=== PATIENT | female | born 1935 | race Caucasian/White ===

== ENCOUNTER 2018-04-01 17:53 | Emergency (ER) | payer MEDICARE, OTHER ==
[~2018-04-01] VITALS: Ht 160 cm; Wt 68.0 kg
[~2018-04-01 17:53] MED LIST: ASPI-495 PO; CHOLESTEROL PILL; UNKNOWN HTN MED; [UNRECOGNIZED DRUG - REMARK]
--- NOTE | 2018-04-01 18:00 | NUR ---
COUGH, CONGESTION, SOB, FLU SYMPTOMS x 1 WEEK, NAD NOTED, VSS, RESP EVEN AND UNLABORED, PT WAS PUT ON MONITOR, WAITING FOR MD NAVARRO.
[2018-04-01] MEDS ORDERED: predniSONE 20 MG TABLET ONE (18:20)
[2018-04-01] MEDS ORDERED: ALBUTEROL FS 2.5 MG/3 ML VIAL.NEB ONE (18:27)
[2018-04-01] MEDS ORDERED: predniSONE 20 MG TABLET PO ONE (18:30)
[2018-04-01] MEDS ORDERED: ALBUTEROL FS 2.5 MG/3 ML VIAL.NEB NEB ONE (18:30)
[2018-04-01 18:31] LABS: BASOPHILS % (AUTO) 0.5 % (0.0-2.0); EOSINOPHILS % (AUTO) 5.1 % (0.0-6.0); HEMATOCRIT 37 % (33-45); HEMOGLOBIN 12.2 g/dL (11.5-14.8); LYMPHOCYTES # (AUTO) 1.2 /CMM (0.8-4.8); LYMPHOCYTES % (AUTO) 30.1 % (20.0-44.0); MEAN CORPUSCULAR HGB CONC 33 g/dl (31.0-36.0); MEAN CORPUSCULAR VOLUME 83 fL (82-100); MONOCYTES # (AUTO) 0.3 /CMM (0.1-1.30); MONOCYTES % (AUTO) 8.2 % (2.0-12.0); NEUTROPHILS # (AUTO) 2.3 /CMM (1.8-8.9); NEUTROPHILS % (AUTO) 56.1 % (43.0-81.0); PLATELET COUNT (AUTO) 211 /CMM (150-450); RDW COEFFICIENT OF VARIATION 14.1 (11.5-15.0); RED BLOOD CELL COUNT(AUTO) 4.44 MIL/uL (4.0-5.2)
--- NOTE | 2018-04-01 18:31 | NUR ---
RT AT BS
[2018-04-01] MEDS ORDERED: ATOR10TA PO (18:34)
[2018-04-01] MEDS ORDERED: LEVE500T20 PO (18:34)
[2018-04-01] MEDS ORDERED: CARV6.252 PO (18:34)
[2018-04-01] MEDS ORDERED: DABI150C PO (18:34)
[2018-04-01 18:45] LABS: CALCIUM, SERUM 9.2 mg/dL (8.5-10.1); CARBON DIOXIDE 29 mmol/L (21-32); CHLORIDE 106 mmol/L (98-107); CREATININE 0.7 mg/dL (0.6-1.3); GLUCOSE 111 mg/dL (74-106); POTASSIUM 4.1 mmol/L (3.5-5.1); SODIUM SERUM 139 mmol/L (136-145); UREA NITROGEN, BLOOD 20 mg/dL (7-18)
[2018-04-01] MEDS ORDERED: ASPI-495 PO (18:52)
[2018-04-01] MEDS ORDERED: CLOP75TA15 PO (18:52)
[2018-04-01 19:00] LABS: B-TYPE NATRIURETIC PEPTIDE 584 PG/ML (0-125)
--- NOTE | 2018-04-01 19:20 | NUR ---
Patient does not wish to proceed with medical care recommended by Dr. VALLE. Patient given information related to possible complications, up to and including , which could occur as a result of leaving the hospital at this time. Patient verbalizes understanding of risks involved due to leaving against medical advice. Patient has signed AMA form.
[2018-04-01] MEDS ORDERED: LEVOFLOXACIN (750 MG) 750 MG TABLET PO SCH (19:30)
--- NOTE | 2018-04-01 19:34 | NUR ---
Patient discharged to home in stable condition. Written and verbal after care instructions given. Patient verbalizes understanding of instruction AND RX. PT'S DAUGHTER IS DRIVING PT HOME. PT'S VSS. PT STILL SOUNDS TIGHT. RESP 22. O2 SAT IS 97% ON RA. PT AMBULATED OUT WITH A STEADY GAIT. PT IS AWARE THAT SHE CAN RETURN FOR ADMISSION AT ANY TIME. AMA FORM IS IN CHART AND DR. VALLE IS AWARE.
[2018-04-01 19:37] VITALS: BP 148/89
== END 2018-04-01 19:38 | disposition left against medical advice (07) ==
LOC: ER 17:55
DX: I11.0 Hypertensive heart disease with heart failure (principal); I50.9 Heart failure, unspecified; J45.909 Unspecified asthma, uncomplicated; I25.2 Old myocardial infarction; Z88.6 Allergy status to analgesic agent; Z85.820 Personal history of malignant melanoma of skin; Z86.73 Personal history of transient ischemic attack (TIA), and cerebral infarction without residual deficits
CPT/HCPCS: 36415; 71045-TC; 80048-TC; 83880; 85025-TC; A4606; Z7610

== ENCOUNTER 2018-06-04 19:45 | Emergency (ER) | payer MEDICARE, OTHER ==
[~2018-06-04] VITALS: Ht 149.9 cm; Wt 60.3 kg
[~2018-06-04 19:45] MED LIST changes: +ATOR10TA PO; +CARV6.252 PO; -CHOLESTEROL PILL; +CLOP75TA15 PO; +DABI150C PO; +LEVE500T20 PO; -UNKNOWN HTN MED; -[UNRECOGNIZED DRUG - REMARK]
[2018-06-04 19:52] VITALS: BP 153/104
[2018-06-04] MEDS ORDERED: ACETAMINOPHEN ES 500 MG TABLET ONE (20:22)
[2018-06-04] MEDS ORDERED: ACETAMINOPHEN ES 500 MG TABLET PO ONE (20:30)
== END 2018-06-04 21:45 | disposition home or self-care (01) ==
LOC: ER 19:49
DX: S40.011A Contusion of right shoulder, initial encounter (principal); M25.511 Pain in right shoulder; I10 Essential (primary) hypertension; I25.2 Old myocardial infarction; Z79.82 Long term (current) use of aspirin; W01.0XXA Fall on same level from slipping, tripping and stumbling without subsequent striking against object, initial encounter; Y93.89 Activity, other specified; Y92.000 Kitchen of unspecified non-institutional (private) residence as the place of occurrence of the external cause; Y99.8 Other external cause status
CPT/HCPCS: 73030; 73060; 99284; A4606; Z7610

== ENCOUNTER 2019-03-07 13:06 | Inpatient (IN) | payer MEDICARE, OTHER ==
[~2019-03-07] VITALS: Ht 152.4 cm; Wt 67.8 kg
[2019-03-07] MEDS ORDERED: LOSA50TA39 PO (13:30)
[2019-03-07] MEDS ORDERED: MORPHINE SULFATE INJ 2 MG/ML DISP.SYRIN IV ONE (13:30)
[2019-03-07] MEDS ORDERED: ONDANSETRON HCL/PF 4 MG/2 ML VIAL IVP ONE (13:30)
--- NOTE | 2019-03-07 13:35 | NUR ---
18G IV STARTED IN RAC. BLOOD WAS DRAWN AND DIE MAKER TRIM IS AT THE BEDSIDE FOR P/U.
--- NOTE | 2019-03-07 13:37 | NUR ---
EKG IN PROGRESS AT THE BEDSIDE.
[2019-03-07] MEDS ORDERED: ONDANSETRON HCL/PF 4 MG/2 ML VIAL ONE (13:38)
[2019-03-07 13:39] LABS: BASOPHILS % (AUTO) 0.7 % (0.0-2.0); EOSINOPHILS % (AUTO) 3.1 % (0.0-6.0); HEMATOCRIT 35 % (33-45); HEMOGLOBIN 11.7 g/dL (11.5-14.8); LYMPHOCYTES # (AUTO) 1.1 /CMM (0.8-4.8); LYMPHOCYTES % (AUTO) 20.3 % (20.0-44.0); MEAN CORPUSCULAR HGB CONC 33 g/dl (31.0-36.0); MEAN CORPUSCULAR VOLUME 85 fL (82-100); MONOCYTES # (AUTO) 0.5 /CMM (0.1-1.30); MONOCYTES % (AUTO) 9.7 % (2.0-12.0); NEUTROPHILS # (AUTO) 3.4 /CMM (1.8-8.9); NEUTROPHILS % (AUTO) 66.2 % (43.0-81.0); PLATELET COUNT (AUTO) 198 /CMM (150-450); RED BLOOD CELL COUNT(AUTO) 4.13 MIL/uL (4.0-5.2); WHITE BLOOD COUNT (AUTO) 5.2 K/uL (4.3-11.0)
[2019-03-07] MEDS ORDERED: MORPHINE SULFATE INJ 2 MG/ML DISP.SYRIN ONE (13:39)
--- NOTE | 2019-03-07 13:45 | NUR ---
PT REC'D MEDICATION ORDERED. PT WAS 92% ON RA. PT WAS PLACED ON 2L O2 VIA NC AND IS SATURATING @ 97%.
--- NOTE | 2019-03-07 13:46 | NUR ---
[place].
[2019-03-07 13:47] LABS: CALCIUM, SERUM 8.9 mg/dL (8.5-10.1); CARBON DIOXIDE 33 mmol/L (21-32); CHLORIDE 109 mmol/L (98-107); CREATININE 0.6 mg/dL (0.6-1.3); GLUCOSE 108 mg/dL (74-106); POTASSIUM 4.1 mmol/L (3.5-5.1); SODIUM SERUM 148 mmol/L (136-145); UREA NITROGEN, BLOOD 18 mg/dL (7-18)
[2019-03-07 13:53] LABS: ALANINE AMINOTRANSFERASE 25 U/L (12-78); ALBUMIN 3.3 g/dL (3.4-5.0); ALKALINE PHOSPHATASE 94 U/L (46-116); ASPARTATE AMINOTRANSFERASE 27 U/L (15-37); BILIRUBIN,DIRECT 0.1 mg/dL (0.0-0.2); BILIRUBIN,TOTAL 0.6 mg/dL (0.2-1.0); LIPASE 102 U/L (73-393); TOTAL PROTEIN, SERUM 6.5 g/dL (6.4-8.2)
--- NOTE | 2019-03-07 14:00 | NUR ---
Pt returned from CT.
--- NOTE | 2019-03-07 14:46 | NUR ---
HARITHA PAGED, VLAD OLIVO TRAINER FELT CUTTING MACHINE OPERATOR
--- NOTE | 2019-03-07 14:57 | NUR ---
CALLED NURSING SUP. FOR TELE BED
--- NOTE | 2019-03-07 15:06 | NUR ---
Note heron in ED - 03/07/19 at 1510 by KLAUS PT APPEARS TO BE RESTING COMFORTABLY WITH NO C/O PAIN AT THIS TIME. PT IS ON THE MONITOR AND CONTINUOUS PULSE OX. SR NOTED.
--- NOTE | 2019-03-07 15:06 | NUR ---
PT APPEARS TO BE RESTING COMFORTABLY WITH NO C/O PAIN AT THIS TIME. PT IS ON THE MONITOR AND CONTINUOUS PULSE OX. AFIB NOTED.
[2019-03-07] MEDS ORDERED: ASPI-605 PO (15:07)
--- NOTE | 2019-03-07 15:07 | NUR ---
PT'S DAUGHTER IS AT THE BEDSIDE. SHE WENT HOME TO GET THE PT'S HOME MEDICATIONS. MEDICATIONS WERE GIVEN TO GENARO MONDRAGON REC NURSE.
--- NOTE | 2019-03-07 15:16 | NUR ---
TELE [id number]-
--- NOTE | 2019-03-07 15:25 | NUR ---
CALLING REPORT TO TELE NURSE.
--- NOTE | 2019-03-07 15:29 | NUR ---
REPORT GIVEN TO CHRIS GARCIA
--- NOTE | 2019-03-07 15:29 | NUR ---
room 322-1 nurse gloria receiving RN
[2019-03-07] MEDS ORDERED: ACETAMINOPHEN 325 MG TABLET PO PRN (15:30)
[2019-03-07] MEDS ORDERED: MAGNESIUM HYDROXIDE 30 ML UDC PO PRN (15:30)
[2019-03-07] MEDS ORDERED: ONDANSETRON HCL/PF 4 MG/2 ML VIAL IVP PRN (15:30)
[2019-03-07] MEDS ORDERED: Z GUARD REMEDY 2 OZ OINT TP PRN (15:30)
[2019-03-07] MEDS ORDERED: MAG HYDROX/AL HYDROX/SIMETH 30 ML UDC PO PRN (15:30)
[2019-03-07] MEDS ORDERED: MORPHINE SULFATE INJ 2 MG/ML DISP.SYRIN IV PRN (15:30)
--- NOTE | 2019-03-07 15:32 | NUR ---
SATHYA COLUNGA, DAUGHTER,
[2019-03-07 16:00] VITALS: BP 111/63
--- NOTE | 2019-03-07 16:03 | NUR ---
TELE/RN NOTE RECEIVED THE PATIENT ON A GURNEY. ASSISTED TO BED. THE PATIENT ALERT AND ORIENTED X2. RECEIVING OXYGEN AT 2L/MIN VIA NASAL CANNULA AND DENIES SOB. RESPIRATION REGULAR AND UNLABORED. DENIES PAIN. RAC G 18 PATENT AND SALINE LOCKED. GAVE ORIENTATION TO THE ROOM/UNIT. BED LOW AND LOCKED. SIDE RAILS UP X3. CALL LIGHT WITHIN REACH. WILL CONTINUE TO MONITOR.
--- NOTE | 2019-03-07 16:30 | NUR ---
MS/RN NOTE EXTERNAL TELE BOX READING AFIB 46.
[2019-03-07] MEDS: CARVEDILOL 6.25 MG TABLET PO SCH (17:00)
--- NOTE | 2019-03-07 18:11 | NUR ---
MS/RN CLOSING NOTE THE PATIENT ALERT AND ORIENTED X2. RECEIVING OXYGEN 2L/MIN VIA NASAL CANNULA DN SATURATION IS AT 97%. DENIES SOB. RESPIRATION REGULAR AND UNLABORED. DENIES PAIN. EXTERNAL TELE BOX READING IS AFIB 43. ABDOMEN SOFT AND NON-DISTENDED. RAC G 18 PATENT AND SALINE LOCKED. BED LOW AND LOCKED. SIDE RAILS UP X3. CALL LIGHT WITHIN REACH. WILL ENDORSE TO NIGHTS SHIFT.
--- NOTE | 2019-03-07 19:44 | NUR ---
DISINTEGRATOR FEEDER OPENING NOTES: RECEIVED PT ON 2LPM VIA NC AND IS TOLERATING WELL. PT ASKING TO EAT OR DRINK BUT EXPLAINED TO FAMILY MEMBERS THE SITUATION. FOR NOW, PT HAS TO REMAIN NPO. NO N/V NOTED AT THIS TIME. ENDORSED THAT X RAY IS TO PICK HER UP FOR SMALL BOWEL FOLLOW THROUGH. AWAITING AT THIS TIME. ASKED FAMILY MEMBERS AT BEDSIDE TO BRING PRADAXA BUT THEY ARE NOT THE ONES LIVING WITH HER SO THEY ARE UNABLE TO PROVIDE PRADAXA BUT WILL INFORM ANOTHER FAMILY MEMBER. IV REMAINS INTACT. PT ON TELE BOX AND READING SHOWS A FIB 48. BED KEPT IN LOW, LOCKED POSITION, AND SIDE RAILS X 2UP. WILL CONTINUE TO MONITOR PT. Addendum: 03/08/19 at 0236 by BENJAMIN BOATENG RN WAS ENDORSED
[2019-03-07 20:00] VITALS: BP 105/45
--- NOTE | 2019-03-07 20:31 | NUR ---
PREPARATION CENTER COORDINATOR NOTES: DAUGHTER PURAN AT BEDSIDE AND BROUGHT PRADAXA 150MG IN BOTTLE WITH 7 CAPSULES NOTED. WILL SEND TO PHARMACY TOMORROW.
--- NOTE | 2019-03-07 20:38 | NUR ---
EXTERNAL AUDITOR NOTES: MARLENY MCDONNELL, CAME BY AND DROPPED OFF PRADAXA. 7 CAPSULES NOTED AND SHE SIGNED FOR IT. HER PHONE NUMBER IN CASE OF EMERGENCY [phone]
[2019-03-07] MEDS: ATORVASTATIN 10 MG TABLET PO SCH (21:01)
[2019-03-08] VITALS: BP 118/65
--- NOTE | 2019-03-08 05:28 | NUR ---
HECTOR PEREZ NOTES: PT UP AND SAID HER FEET ARE TIRED AND WOULD LIKE TO WALK AROUND THE UNIT. Addendum: 03/08/19 at 48 by BENJAMIN BOATENG RN DISCARD THIS NOTE ; WRONG PT
--- NOTE | 2019-03-08 06:24 | NUR ---
SOLVENT PROCESS EXTRACTOR OPERATOR CLOSING NOTES: ALL NEEDS WERE ATTENDED AND ANTICIPATED FOR. PT KEPT CLEAN, DRY, AND COMFORTABLE. PT ON 2LPM VIA NC AND IS TOLERATING WELL. NO SOB NOTED. NO S/S OF DISTRESS. NO N/V DURING SHIFT. PT ON TELE MONITOR AND READING SHOWS A FIB 58-60S. PT HAS BEEN NPO ORDERED. IV REMAINS INTACT .CURRENTLY H/L. BED KEPT IN LOW, LOCKED POSITION, AND SIDE RAILS X 2 UP. BED ALARM ACTIVATED. WILL ENDORSE TO AM NURSE FOR SHONA.
--- NOTE | 2019-03-08 07:25 | NUR ---
VOLCANOLOGIST NOTES: BROUGHT DOWN PRADAXA TO PHARMACY.
[2019-03-08 08:00] VITALS: BP 120/67
--- NOTE | 2019-03-08 08:00 | NUR ---
Tele/RN - Assessment Patient awake, A/O x 4, on tele A.Fib with PVCs, no complaints overnight, denies pain at this time, no c/o nausea/vomiting, no apparent distress noted, afebrile, stable on room air. Saline lock on the RAC is patent, intact, with no signs of infiltration. Lab results pending. Skin is intact. Patient is ambulatory with steady gait. Patient is currently NPO for SBFT today. Will continue with current medical management.
[2019-03-08] MEDS: CARVEDILOL 6.25 MG TABLET PO SCH ×2 (08:16→16:31)
[2019-03-08] MEDS: LOSARTAN POTASSIUM 50 MG TABLET PO SCH (08:16)
[2019-03-08] MEDS: LEVETIRACETAM (250 MG) 250 MG TABLET PO SCH (08:17)
[2019-03-08 08:30] LABS: BASOPHILS % (AUTO) 0.6 % (0.0-2.0); EOSINOPHILS % (AUTO) 2.5 % (0.0-6.0); HEMATOCRIT 37 % (33-45); HEMOGLOBIN 11.9 g/dL (11.5-14.8); LYMPHOCYTES % (AUTO) 20.5 % (20.0-44.0); MEAN CORPUSCULAR HGB CONC 32 g/dl (31.0-36.0); MEAN CORPUSCULAR VOLUME 86 fL (82-100); MONOCYTES # (AUTO) 0.4 /CMM (0.1-1.30); NEUTROPHILS # (AUTO) 3.4 /CMM (1.8-8.9); NEUTROPHILS % (AUTO) 68.4 % (43.0-81.0); PLATELET COUNT (AUTO) 197 /CMM (150-450)
[2019-03-08] MEDS: FUROSEMIDE 20 MG/2 ML VIAL IV SCH (08:33)
[2019-03-08] MEDS: FAMOTIDINE/PF INJ 20 MG/2 ML VIAL IV SCH (08:33)
[2019-03-08 08:38] LABS: CALCIUM, SERUM 8.5 mg/dL (8.5-10.1); CARBON DIOXIDE 33 mmol/L (21-32); CHLORIDE 106 mmol/L (98-107); CREATININE 0.7 mg/dL (0.6-1.3); GLUCOSE 79 mg/dL (74-106); MAGNESIUM 1.8 mg/dL (1.8-2.4); PHOSPHORUS 4.3 mg/dL (2.5-4.9); SODIUM SERUM 144 mmol/L (136-145); UREA NITROGEN, BLOOD 19 mg/dL (7-18)
[2019-03-08 08:54] LABS: CHOLESTEROL 130 mg/dL (<200); HDL CHOLESTEROL 42 mg/dL (40-60); LDL 76 mg/dL (0-99); THYROID STIMULATING HORMONE 1.151 uIU/mL (0.358-3.74); TRIGLYCERIDES 63 mg/dL (30-150)
[2019-03-08] MEDS ORDERED: DIATR MEGLU/DIATRIZOATE SODIUM 120 ML BOTTLE (GASTROGRAPHIN) ONE (09:15)
--- NOTE | 2019-03-08 10:00 | NUR ---
Tele/RN - Notes Patient taken to radiology for SBFT.
[2019-03-08 12:00] VITALS: BP 150/75
--- NOTE | 2019-03-08 12:15 | NUR ---
Tele/RN - Notes Patient came back from SBFT in no acute distress, remain NPO for now, daughter Kaya at bedside updated on plan of care.
--- NOTE | 2019-03-08 12:20 | NUR ---
Tele/RN - Notes Patient still A.Fib with PVCs HR 70s-80s on tele monitor.
[2019-03-08 16:00] VITALS: BP 156/81
--- NOTE | 2019-03-08 16:35 | NUR ---
Tele/RN - Notes Patient tolerated full liquid diet well, no c/o nausea/vomiting, denies abdominal pain, will advance to soft.
--- NOTE | 2019-03-08 18:02 | NUR ---
Tele/RN - End of shift summary Patient states feeling better, denies abdominal pain, no c/o n/v, tolerated soft diet, on low dose Lasix, diuresing well. All needs attended. Fall precautions maintained. Will continue with current medical management.
--- NOTE | 2019-03-08 19:28 | NUR ---
CHIEF ENGINEER RESEARCH OPENING NOTES: RECEIVED PT ON 2LPM VIA NC AND IS TOLERATING WELL. IV REMAINS INTACT AND IS PATENT AND INTACT .CURRENTLY H/L. FAMILY MEMBER AT BEDSIDE. PT CONCERNED ABOUT GOING HOME. EXPLAINED TO HER THAT SHE IS STILL UNDER OBSERVATION AND NO ORDERS FOR DISCHARGE ARE PUT IN YET. BED KEPT IN LOW, LOCKED POSITION, AND SIDE RAILS X 2UP. PT ON TELE MONITOR AND READING SHOWS A FIB 44. WILL CONTINUE TO MONITOR PT.
[2019-03-08 20:00] VITALS: BP 114/57
[2019-03-08] MEDS: ATORVASTATIN 10 MG TABLET PO SCH (21:14)
[2019-03-09] VITALS: BP 132/56
[2019-03-09 04:00] VITALS: BP 145/59
--- NOTE | 2019-03-09 06:35 | NUR ---
MARKETING TRAFFIC COORDINATOR CLOSING NOTES: ALL NEEDS WERE ATTENDED AND ANTICIPATED FOR. PT REMAINS ON 2LPM VIA NC . PT ASLEEP AT THIS TIME AND RESTING COMFORTABLY. NO SOB NOTED. NO S/S OF DISTRESS. NO N/V. IV REMAINS INTACT AND CURRENTLY H/L. BED KEPT IN LOW, LOCKED POSITION, AND SIDE RAILS X 2UP. PT ON TELE MONITOR AND READING SHOWS A FIB 61 WITH OCCASIONAL PVCS. PT ANTICIPATING TO GO HOME. WILL ENDORSE TO AM NURSE FOR SHONA.
[2019-03-09 07:03] LABS: CALCIUM, SERUM 8.2 mg/dL (8.5-10.1); CARBON DIOXIDE 34 mmol/L (21-32); CHLORIDE 103 mmol/L (98-107); CREATININE 0.7 mg/dL (0.6-1.3); GLUCOSE 88 mg/dL (74-106); SODIUM SERUM 142 mmol/L (136-145); UREA NITROGEN, BLOOD 20 mg/dL (7-18)
[2019-03-09 07:04] LABS: BASOPHILS % (AUTO) 0.8 % (0.0-2.0); EOSINOPHILS % (AUTO) 2.9 % (0.0-6.0); HEMATOCRIT 34 % (33-45); HEMOGLOBIN 11.1 g/dL (11.5-14.8); MEAN CORPUSCULAR HGB CONC 33 g/dl (31.0-36.0); MEAN CORPUSCULAR VOLUME 85 fL (82-100); MONOCYTES # (AUTO) 0.5 /CMM (0.1-1.30); MONOCYTES % (AUTO) 10.8 % (2.0-12.0); NEUTROPHILS # (AUTO) 3.1 /CMM (1.8-8.9); NEUTROPHILS % (AUTO) 64.5 % (43.0-81.0); PLATELET COUNT (AUTO) 177 /CMM (150-450); RED BLOOD CELL COUNT(AUTO) 4.02 MIL/uL (4.0-5.2); WHITE BLOOD COUNT (AUTO) 4.8 K/uL (4.3-11.0)
--- NOTE | 2019-03-09 07:31 | NUR ---
Tele/RN - Assessment Patient is awake, A/O x 4, on tele A.Fib with occasional PVCs, no complaints overnight, denies abdominal pain, no c/o nausea/vomiting, afebrile, currently on oxygen at 2 lpm via NC. Saline lock on the RAC is patent, intact, with no signs of infiltration. Labs reviewed, no critical results. Skin is intact. Patient is ambulatory with steady gait. Anticipate discharge home today if remain stable.
[2019-03-09 08:00] VITALS: BP 140/77
[2019-03-09] MEDS: LEVETIRACETAM (250 MG) 250 MG TABLET PO SCH (08:25)
[2019-03-09] MEDS: CARVEDILOL 6.25 MG TABLET PO SCH (08:26)
[2019-03-09] MEDS: FAMOTIDINE/PF INJ 20 MG/2 ML VIAL IV SCH (08:26)
[2019-03-09] MEDS: LOSARTAN POTASSIUM 50 MG TABLET PO SCH (08:26)
[2019-03-09] MEDS: FUROSEMIDE 20 MG/2 ML VIAL IV SCH (08:26)
[2019-03-09] MEDS ORDERED: DABIGATRAN ETEXILATE MESYLATE 150 MG CAPSULE PO SCH (09:00)
--- NOTE | 2019-03-09 09:15 | NUR ---
MS/RN - Notes Cardiac monitoring discontinued.
[2019-03-09] MEDS ORDERED: FUROSEMIDE 20 MG/2 ML VIAL IV ONE (10:00)
--- NOTE | 2019-03-09 10:45 | NUR ---
MS/RN - Notes Patient's oxygen saturation at rest on room air was 87%, with activity was 86%, on oxygen at 2lpm was 92-94%. Hospitalist BENITA Dan and CM made aware, will arrange for DME:oxygen prior to discharge.
[2019-03-09] MEDS ORDERED: AMOX/CLAVULANATE 875 MG TABLET ONE (10:53)
--- NOTE | 2019-03-09 12:00 | NUR ---
RECEIVED REPORT FROM YUERN -PT ALERT AND ORIENTED X3.VERBALLY RESPONSIVE IN [facility].SITTING IN THE EDGE OF THE BED WITH O2 AT 2L/MIN VIA NC.DENIES SOB OR DISCOMFORT.CALL LIGHT PLACED WITHIN REACH.
--- NOTE | 2019-03-09 15:17 | NUR ---
DISCHARGE INSTRUCTIONS,MED RECONCILIATION,MED AND HEALTH TEACHING GIVEN TO THE PT.BELONGINGS CHECKED.IV H/L REMOVED TO RT AC WITH NO BLEEDING OR SWELLING NOTED ON THE SITE. AWAITING FOR OXYGEN CONCENTRATOR TO BE DELIVERED IN PT'S HOME.PT COMFORTABLY SLEEPING IN BED WITH NO S/S OR DISTRESS.CALL LIGHT PLACED WITHIN REACH.
[2019-03-09 16:00] VITALS: BP 121/67
--- NOTE | 2019-03-09 17:34 | NUR ---
DISCHARGED HOME WITH STABLE V/S.PICKED UP BY HER DAUGHTER,,POURAN WITH O2 TANK AT 2L/MIN VIA NC.
== END 2019-03-09 17:35 | disposition home or self-care (01) | DRG 388 ==
LOC: ER 13:13 → TELE 15:21 → MED 03-09 08:57
PROVIDERS: ADMIT Registered Nurse; ATTEND Nurse Practitioner Acute Care
DX: K56.600 Partial intestinal obstruction, unspecified as to cause (principal); I50.33 Acute on chronic diastolic (congestive) heart failure; I11.0 Hypertensive heart disease with heart failure; E78.5 Hyperlipidemia, unspecified; I25.10 Atherosclerotic heart disease of native coronary artery without angina pectoris; I48.91 Unspecified atrial fibrillation; I25.2 Old myocardial infarction; Z95.5 Presence of coronary angioplasty implant and graft; K59.00 Constipation, unspecified; E66.9 Obesity, unspecified; Z68.29 Body mass index [BMI] 29.0-29.9, adult; D69.2 Other nonthrombocytopenic purpura; Z79.82 Long term (current) use of aspirin; Z85.828 Personal history of other malignant neoplasm of skin
CPT/HCPCS: 36415; 71045-TC; 74250-TC; 80048-TC; 80061-TC; 80076-TC; 83690-TC; 83735-TC; 83880; 84100-TC; 84443-TC; 84484-TC; 85025-TC; 87081-TC; 97116-TC; 97530-TC; G0378; J1940; J2270; J2405; J3490; Q9963